=== PATIENT | male | born 1935 | race Caucasian/White ===

== ENCOUNTER 2017-07-19 14:36 | Emergency (ER) | payer MEDICARE, OTHER ==
[2017-07-19] MEDS ORDERED: Sodium Chloride 0.9% 10 ML Syringe FLUSH PRN (15:12)
[2017-07-19] MEDS ORDERED: Sodium Chloride 0.9% 2.5 ML Syringe FLUSH PRN (15:12)
--- NOTE | 2017-07-19 15:15 | EDM.PDOC ---
ED HPI GENERAL MEDICAL PROBLEM - General Chief Complaint: General Stated Complaint: PT WOULD LIKE TO GET HIS BP CHECK Time Seen by Provider: 07/19/17 15:03 - History of Present Illness INITIAL COMMENTS - FREE TEXT/NARRATIVE: HISTORY AND PHYSICAL: History of present illness: The patient is an 82-year-old male who lives in [place] and has a family physician there who is here visiting family and presents to the ER with feeling lightheaded and woozy that started this morning after he woke up. The patient initially told the nurse he was dizzy but he is not having a spinning sensation he is having an overall drained feeling like everything has no energy and he feels woozy. He does not have a headache chest pain or shortness of breath and says that it is worse with position changing. The patient is not off balance and is able to ambulate and says that there is no focal weakness or sensory changes in any of his extremities. He is not having abdominal complaints no vomiting or diarrhea and no urinary complaints. The patient is a known history of COPD and is oxygen dependent and that is not different or new today. The patient also has hypertension and takes medications for that. Patient denies any extremity pain neck or back pain. The patient said he didn't think much of these symptoms but his family was concerned and they brought him here because they were concerned that his blood pressure was altered. Review of systems: As per history of present illness and below otherwise all systems reviewed and negative. Past medical history: As per history of present illness and as reviewed below otherwise noncontributory. Surgical history: As per history of present illness and as reviewed below otherwise noncontributory. Social history: No reported history of drug or alcohol abuse. Family history: As per history of present illness and as reviewed below otherwise noncontributory. Physical exam: Gen.: Well-developed well-nourished man who is hearing aid in place but is not hard of hearing on my evaluation. He is cooperative interactive and his speech is intact. Vital signs have been reviewed by me. HEENT: Atraumatic, normocephalic, pupils reactive, there is no nystagmus, negative for conjunctival pallor or scleral icterus, mucous membranes moist, throat clear, neck supple, nontender, trachea midline. There is no cervical adenopathy Lungs: Clear to auscultation diminished air exchange throughout but no wheezing coarse breath sounds stridor or work of breathing, breath sounds equal bilaterally, chest nontender. Heart: S1S2, regular rhythm and sightly [place] Sean rate on my evaluation, no overt murmur Abdomen: Soft, nondistended, nontender. NABS Pelvis: Stable nontender. Genitourinary: Deferred. Rectal: Deferred. Extremities: Atraumatic, negative for cords or calf pain. Neurovascular unremarkable. Neuro: Awake, alert, oriented. Cranial nerves II through XII unremarkable. Cerebellum unremarkable. Motor and sensory unremarkable throughout. Exam nonfocal. Diagnostics: EKG CBC CMP troponin UA magnesium level for static vitals CT scan of the head chest x-ray Therapeutics: IV O2 monitor Please note that after all the orders were placed the patient asked me to step back into the room as he is refusing all intervention at this point. He does not want an EKG he does not want labs he doesn't want any radiologic evaluation and really he says he only wanted his blood pressure checked. He is returning tomorrow to [place] and says he will see his doctor there. The patient is awake alert and oriented and has at bedside. He is competent to make his own decisions. He is aware of my concerns and and my rationale with doing this workup and he accepts that but still refuses any care at this time. He says he will return if anything changes and he will see his doctor when he gets home. is aware of this decision and my concerns. Impression: Lightheadedness etiology unclear refusing evaluation Definitive disposition and diagnosis as appropriate pending reevaluation and review of above. - Related Data Allergies Allergy/AdvReac Type Severity Reaction Status Date / Time Penicillins Allergy Hives Verified 07/19/17 14:52 Home Meds: Home Meds Lisinopril 10 mg PO DAILY 07/19/17 [History] ED ROS GENERAL - Review of Systems Review Of Systems: ROS reveals no pertinent complaints other than HPI. ED EXAM, GENERAL - Physical Exam Exam: See Below (See dictation) Course - Vital Signs Last Recorded V/S: Last Vital Signs Temp 36.1 C 07/19/17 14:36 Pulse 51 L 07/19/17 14:36 Resp 18 07/19/17 14:36 BP 126/60 07/19/17 14:36 Pulse Ox 96 07/19/17 14:36 - Orders/Labs/Meds Orders: Active Orders 24 hr Category Date Time Status Cardiac Monitoring [RC] . DIRECTED Care 07/19/17 15:11 Active EKG Documentation Completion [RC] STAT Care 07/19/17 15:11 Active Orthostatic Vital Signs [RC] ASDIRECTED Care 07/19/17 15:12 Active Oxygen Therapy, ED [RC] ASDIRECTED Care 07/19/17 15:11 Active Pulse Oximetry [RC] ASDIRECTED Care 07/19/17 15:11 Active Chest 1V Frontal [CR] Stat Exams 07/19/17 15:12 Ordered Head wo Cont [CT] Stat Exams 07/19/17 15:12 Ordered CBC WITH AUTO DIFF [HEME] Stat Lab 07/19/17 15:11 Ordered COMPREHENSIVE METABOLIC PN,CMP [CHEM] Stat Lab 07/19/17 15:11 Ordered MAGNESIUM [CHEM] Stat Lab 07/19/17 15:11 Ordered TROPONIN I [CHEM] Stat Lab 07/19/17 15:11 Ordered UA W/MICROSCOPIC [URIN] Stat Lab 07/19/17 15:11 Uncollected Sodium Chloride 0.9% [Saline Flush] Med 07/19/17 15:12 Active 10 ml FLUSH ASDIRECTED PRN Sodium Chloride 0.9% [Saline Flush] Med 07/19/17 15:12 Active 2.5 ml FLUSH ASDIRECTED PRN Saline Lock Insert [OM.PC] Stat Oth 07/19/17 15:11 Ordered Medication Orders Sodium Chloride (Saline Flush) 10 ml FLUSH ASDIRECTED PRN PRN Reason: Keep Vein Open Sodium Chloride (Saline Flush) 2.5 ml FLUSH ASDIRECTED PRN PRN Reason: Keep Vein Open Meds: Medications Generic Name Dose Route Start Last Admin Trade Name Freq PRN Reason Stop Dose Admin Sodium Chloride 10 ml 07/19/17 15:12 Saline Flush FLUSH ASDIRECTED PRN Keep Vein Open Sodium Chloride 2.5 ml 07/19/17 15:12 Saline Flush FLUSH ASDIRECTED PRN Keep Vein Open Departure - Departure Time of Disposition: 15:20 Disposition: Home, Self-Care 01 Condition: Good Clinical Impression: Lightheadedness - Discharge Information Referrals: PCP,None [Primary Care Provider] - Forms: ED Department Discharge Additional Instructions: The following information is given to patients seen in the emergency department who are being discharged to home. This information is to outline your options for follow-up care. We provide all patients seen in our emergency department with a follow-up referral. The need for follow-up, as well as the timing and circumstances, are variable depending upon the specifics of your emergency department visit. If you don't have a primary care physician on staff, we will provide you with a referral. We always advise you to contact your personal physician following an emergency department visit to inform them of the circumstance of the visit and for follow-up with them and/or the need for any referrals to a consulting specialist. The emergency department will also refer you to a specialist when appropriate. This referral assures that you have the opportunity for followup care with a specialist. All of these measure are taken in an effort to provide you with optimal care, which includes your followup. Under all circumstances we always encourage you to contact your private physician who remains a resource for coordinating your care. When calling for followup care, please make the office aware that this follow-up is from your recent emergency room visit. If for any reason you are refused follow-up, please contact the [facility] emergency department at and ask to speak to the emergency department charge nurse. [facility] Primary care- Internal [place] [address] Please follow-up with your family physician in [place] when you return and please return to the ER as needed and as discussed for further evaluation if you choose. - My Orders Last 24 Hours: My Active Orders 07/19/17 15:11 Cardiac Monitoring [RC] . DIRECTED EKG Documentation Completion [RC] STAT Oxygen Therapy, ED [RC] ASDIRECTED Pulse Oximetry [RC] ASDIRECTED CBC WITH AUTO DIFF [HEME] Stat COMPREHENSIVE METABOLIC PN,CMP [CHEM] Stat MAGNESIUM [CHEM] Stat TROPONIN I [CHEM] Stat UA W/MICROSCOPIC [URIN] Stat Saline Lock Insert [OM.PC] Stat 07/19/17 15:12 Orthostatic Vital Signs [RC] ASDIRECTED Chest 1V Frontal [CR] Stat Head wo Cont [CT] Stat Sodium Chloride 0.9% [Saline Flush] 10 ml FLUSH ASDIRECTED PRN Sodium Chloride 0.9% [Saline Flush] 2.5 ml FLUSH ASDIRECTED PRN - Assessment/Plan Last 24 Hours: My Active Orders 07/19/17 15:11 Cardiac Monitoring [RC] . DIRECTED EKG Documentation Completion [RC] STAT Oxygen Therapy, ED [RC] ASDIRECTED Pulse Oximetry [RC] ASDIRECTED CBC WITH AUTO DIFF [HEME] Stat COMPREHENSIVE METABOLIC PN,CMP [CHEM] Stat MAGNESIUM [CHEM] Stat TROPONIN I [CHEM] Stat UA W/MICROSCOPIC [URIN] Stat Saline Lock Insert [OM.PC] Stat 07/19/17 15:12 Orthostatic Vital Signs [RC] ASDIRECTED Chest 1V Frontal [CR] Stat Head wo Cont [CT] Stat Sodium Chloride 0.9% [Saline Flush] 10 ml FLUSH ASDIRECTED PRN Sodium Chloride 0.9% [Saline Flush] 2.5 ml FLUSH ASDIRECTED PRN
[2017-07-19 15:20] VITALS: BP 126/60
== END 2017-07-19 15:33 | disposition home or self-care (01) ==
LOC: MW.ED 14:36
DX: R42 Dizziness and giddiness (principal); Z88.0 Allergy status to penicillin
CPT/HCPCS: 99283; 99284-25